=== PATIENT | female | born 1985 ===

== ENCOUNTER 2023-12-24 15:59 | Outpatient (CLI) | payer OTHER | END 2023-12-24 16:02 | disposition home or self-care (01) | LOC: PRENATAL 15:59 | PROVIDERS: ATTEND Obstetrics & Gynecology Maternal & Fetal Medicine | DX: O35.3XX0 Maternal care for (suspected) damage to fetus from viral disease in mother, not applicable or unspecified (principal); O44.00 Complete placenta previa NOS or without hemorrhage, unspecified trimester; O09.529 Supervision of elderly multigravida, unspecified trimester; Z3A.20 20 weeks gestation of pregnancy ==

== ENCOUNTER 2024-05-10 14:08 | Inpatient (IN) | payer OTHER ==
[~2024-05-10] VITALS: Ht 160 cm; Wt 72.6 kg
[2024-05-14] MEDS ORDERED: PRENATAL TABLE1 EAC1 PO (00:16)
[2024-05-14 00:35] LABS: HEMATOCRIT 37.6 % (36.0-45.00); MEAN CELL VOLUME 89.9 fL (80.00-100.00); MEAN CORPUSCULAR HEMOGLOBIN 31.2 pg (27.00-32.0); MEAN CORPUSCULAR HGB CONC 34.7 g/dl (32.0-36.0); PLATELET COUNT 244 K/uL (150-450); RED BLOOD COUNT 4.18 M/uL (4.00-6.00); RED CELL DISTRIBUTION WIDTH 13.5 % (11.5-14.5)
[2024-05-14 00:36] LABS: PH,URINE 6.5 (5.0-8.0); URINE APPEARANCE Clear; URINE BILIRRUBIN Negative (NEGATIVE); URINE BLOOD Small; URINE COLOR Yellow; URINE GLUCOSE Negative (NEGATIVE); URINE LEUKOCYTE Trace; URINE NITRATE Negative; URINE PROTEIN Negative (NEGATIVE); URINE UROBILINOGEN 0.2 E.U./dl
[2024-05-14 00:41] LABS: URINE BACTERIA 477.4 uL (0.0-1933); URINE EPITHELIAL CELLS 4.4 uL (0.0-38.8); URINE WBC 12.2 uL (0.0-23.2)
[2024-05-14 00:43] LABS: URINE RBC 0.9 uL (0.0-20.8)
[2024-05-14 00:56] LABS: INR < 0.93; PARTIAL THROMBOPLASTIN TIME 26.3 SECONDS (22.0-34.0); PROTHROMBIN TIME 9.2 SECONDS (9.0-11.5)
[2024-05-14 01:03] LABS: ALBUMIN 3.1 gm/dL (3.4-5.0); BILIRUBIN TOTAL 0.49 mg/dL (0.3-1.2); CALCIUM 9.6 mg/dL (8.5-10.1); CREATININE SERUM 0.68 mg/dL (0.55-1.02); GFR 97.36; GLOBULINA 4.1 G/DL (2.4-3.5); POTASSIUM 4.26 mEq/L (3.5-5.1); TOTAL PROTEIN 7.2 gm/dL (6.4-8.2)
[2024-05-14] MEDS ORDERED: CEFAZOLIN SODIUM 1,000 MG VIAL IV SCH (04:00)
[2024-05-14] MEDS ORDERED: MEPERIDINE HCL/PF 50 MG/ML VIAL IM PRN (05:45)
[2024-05-14] MEDS ORDERED: PROMETHAZINE HCL 50 MG/ML AMPUL IM PRN (05:45)
[2024-05-14] MEDS ORDERED: OXYTOCIN 1,000 ML IV SCH (05:45)
[2024-05-14] MEDS ORDERED: OXYTOCIN 10 UNITS/ML VIAL IV ONE (06:30)
[2024-05-14] MEDS ORDERED: ERYTHROMYCIN BASE 1 GM TUBE OP ONE (06:30)
[2024-05-14] MEDS ORDERED: SIMETHICONE 125 MG CAPSULE PO SCH (09:00)
[2024-05-14] MEDS ORDERED: DOCUSATE SODIUM 100MG CAP PO SCH (09:00)
[2024-05-14 13:44] LABS: ABG PH 7.153 (7.35-7.45); ABG PO2 6.3 mmHg (80-100); ABG pCO2 70.8 mmHg (35-45); BASE EXCESS -6.1 mmol/l; BICARBONATE 24.3 mmol/l (23-25); SaO2 3.2 %; Tco2 26.4 mmol/l; o2 21 %
[2024-05-14 15:35] LABS: HEMATOCRIT 33.2 % (36.0-45.00); HEMOGLOBIN 11.5 g/dL (12.0-15.00); MEAN CELL VOLUME 88.9 fL (80.00-100.00); MEAN CORPUSCULAR HEMOGLOBIN 30.7 pg (27.00-32.0); MEAN CORPUSCULAR HGB CONC 34.5 g/dl (32.0-36.0); PLATELET COUNT 209 K/uL (150-450); RED BLOOD COUNT 3.73 M/uL (4.00-6.00); RED CELL DISTRIBUTION WIDTH 13.6 % (11.5-14.5)
[2024-05-14] MEDS ORDERED: IBUprofen 600 MG TABLET PO PRN (18:00)
[2024-05-14] MEDS ORDERED: ACETAMINOPHEN WITH CODEINE 1 UDTAB TABLET PO PRN (18:00)
[2024-05-17] MEDS ORDERED: NAPR500T14 PO (10:05)
[2024-05-17] MEDS ORDERED: Tylenol #3 PO (10:05)
== END 2024-05-17 12:05 | disposition home or self-care (01) | DRG 788 ==
LOC: OB/GYN 14:08 → LDR 05-13 22:09 → OB/GYN 05-13 22:09 → O/R 05-14 07:36 → OB/GYN 05-14 08:33
PROVIDERS: ADMIT Obstetrics & Gynecology; ATTEND Obstetrics & Gynecology
PROC: 4A1HXCZ Monitoring of Products of Conception, Cardiac Rate, External Approach (ICD-10-PCS; 2024-05-13)
PROC: 10D00Z1 Extraction of Products of Conception, Low, Open Approach (ICD-10-PCS; principal; 2024-05-14 04:00)
DX: O36.8130 Decreased fetal movements, third trimester, not applicable or unspecified (principal); O48.0 Post-term pregnancy; Z3A.40 40 weeks gestation of pregnancy; Z37.0 Single live birth; Z20.822 Contact with and (suspected) exposure to COVID-19